=== PATIENT | male | born 1965 | race Caucasian/White ===

== ENCOUNTER 2020-06-28 00:27 | Emergency (ER) | payer OTHER ==
[~2020-06-28] VITALS: Ht 167.6 cm; Wt 68.0 kg
[2020-06-28 00:29] VITALS: Ht 167.6 cm; Wt 68.0 kg
[2020-06-28 04:48] VITALS: BP 134/89
== END 2020-06-28 04:47 | disposition home or self-care (01) ==
LOC: ED 00:27
DX: S61.512A Laceration without foreign body of left wrist, initial encounter (principal); W31.89XA Contact with other specified machinery, initial encounter; Y93.89 Activity, other specified; Y92.89 Other specified places as the place of occurrence of the external cause; Y99.0 Civilian activity done for income or pay
CPT/HCPCS: 90715; J2001; Q0092